=== PATIENT | male | born 1980 | race African-American/Black ===

== ENCOUNTER 2018-08-03 10:11 | Emergency (ER) | payer BC, MEDICARE ==
[~2018-08-03] VITALS: Ht 165.1 cm; Wt 59.0 kg
[~2018-08-03 10:11] MED LIST: AMLO10TA4 PO; AMLO5TAB7 PO; CALC667C6 PO; CARV3.12 PO; CINA30TA2 PO; DOXA2TAB2 PO; FOLI0.8T3 PO; HYDR-2758 PO
[2018-08-03] MEDS ORDERED: ONDANSETRON ODT 4 MG TAB.RAPDIS. PO ONE (10:45)
[2018-08-03] MEDS: ONDANSETRON PF 4 MG/2 ML VIAL. IV ONE (11:04)
--- NOTE | 2018-08-03 11:04 | EKG ---
[facility] [address] [place] [address] Test Date: 2018-08-03 Test Time: 10:36:26 Pat Name: PRIMO DE LA ROSA Department: Room: Gender: M Accounting Manager Controller: : [id number] Requested By: ACE YATES Order Number: [id number] Reading MD: Clay Brunson Measurements Intervals [place] Rate: 89 P: 53 HI: 172 QRS: 46 QRSD: 80 T: 66 QT: 362 QTc: 447 Interpretive Statements SINUS RHYTHM LEFT ATRIAL ABNORMALITY NONSPECIFIC ANTERIOR ST CHANGES ABNORMAL ECG RI6.01 Electronically Signed On 08-07-2018 12:51:56 [employer]IL [employer] by Clay Brunson
[2018-08-03] MEDS: LIDO:MAALOX 1:1 20 ML SINGLE DOSE. SWSW ONE (11:11)
[2018-08-03 11:21] LABS: BASO % 1 % (0-3); EOS # 0.1 x10^3/uL (0.0-0.7); EOS % 2 % (0-3); HEMATOCRIT 45.6 % (39.0-53.0); LYMPH # 0.7 x10^3/uL (1.0-4.8); LYMPH % 12 % (24-48); MEAN CORPUSCULAR HEMOGLOBIN 31 pg (25-35); MEAN CORPUSCULAR HGB CONC 33 g/dL (31-37); MEAN CORPUSCULAR VOLUME 95 fL (79-100); MONO # 0.5 x10^3/uL (0.0-1.1); MONO % 7 % (0-9); NEUT # 4.8 x10^3uL (1.8-7.7); NEUT % 78 % (31-73); PLATELET COUNT 170 x10^3/uL (140-400); RED BLOOD COUNT 4.83 x10^6/uL (4.30-5.70); WHITE BLOOD COUNT 6.2 x10^3/uL (4.0-11.0)
--- NOTE | 2018-08-03 11:34 | PHYS DOC ---
Past Medical History Past Medical History: Hypertension, Renal Failure Past Surgical History: Other Additional Past Surgical Histo: AV Fistula L Arm, kidney transplant 2007 Alcohol Use: None Drug Use: None Adult General Chief Complaint Chief Complaint: GI PROBLEM HPI HPI Patient is a 38 year old male with end-stage renal disease on hemodialysis who is presenting with vomiting. It is been going on for 5-6 hours he woke up with vomiting he also has burning. Very" esophagus" pain. He says that started after he started vomiting. He said he does not drink alcohol he occasionally smokes cigarettes he denies drugs he had dialysis last night without difficulty he has had no fever just the vomiting only. He has no abdominal surgeries in the past. No diarrhea does not make urine no chest pain no coughing no sick contacts symptoms are moderate has not tried anything for relief Patient is no chest pain at all. Review of Systems Review of Systems Constitutional: Denies fever or chills [] Eyes: Denies change in visual acuity, redness, or eye pain [] HENT: Denies nasal congestion or sore throat [] Respiratory: Denies cough or shortness of breath [] Cardiovascular: No additional information not addressed in HPI [] Musculoskeletal: Denies back pain or joint pain [] Integument: Denies rash or skin lesions [] All other systems were reviewed and found to be within normal limits, except as documented in this note. Current Medications Current Medications Current Medications Medications (Trade) Dose Ordered Sig/Cori Start Time Stop Time Status Last Admin Dose Admin Aspirin (Children'S Aspirin) 324 mg 1X ONCE 08/03/18 12:15 08/03/18 12:16 DC 08/03/18 12:56 324 MG Multi-Ingredient Mouthwash/Gargle (Gi Cocktail) 20 ml 1X ONCE 08/03/18 10:45 08/03/18 10:46 DC 08/03/18 11:11 20 ML Ondansetron HCl (Zofran Odt) 4 mg 1X ONCE 08/03/18 10:45 08/03/18 10:46 DC Ondansetron HCl (Zofran) 4 mg 1X ONCE 08/03/18 10:45 08/03/18 10:47 DC 08/03/18 11:04 4 MG Allergies Allergies Allergies Coded Allergies Type Severity Reaction Last Updated Verified povidone-iodine Allergy Mild itching 08/03/18 Yes soap Allergy Mild itching 08/03/18 Yes Physical Exam Physical Exam Constitutional: Well developed, well nourished, no acute distress, non-toxic appearance. [] HENT: Normocephalic, atraumatic, bilateral external ears normal, oropharynx dry , no oral exudates, nose normal. [] Eyes: PERRLA, EOMI, conjunctiva normal, no discharge. [] Neck: Normal range of motion, no tenderness, supple, no stridor. [] Cardiovascular:Heart rate regular rhythm, no murmur [] Lungs & Thorax: faint crackles b/l lung bases Abdomen: Bowel sounds normal, soft, epigastric (no ruq) tenderness, no masses, no pulsatile masses. [] Skin: Warm, dry, no erythema, no rash. [] Back: No tenderness, no CVA tenderness. [] Extremities: No tenderness, no cyanosis, no clubbing, ROM intact, no edema. [] thrill present in left arm Neurologic: Alert and oriented X 3, normal motor function, normal sensory function, no focal deficits noted. [] Psychologic: Affect normal, judgement normal, mood normal. [] Current Patient Data Vital Signs Vital Signs Date Time Temp Pulse Resp B/P (MAP) Pulse Ox O2 Delivery O2 Flow Rate FiO2 08/03/18 14:00 78 16 150/98 (115) 100 Room Air 08/03/18 10:25 98.1 98.1 Lab Values Laboratory Tests Test 08/03/18 11:05 08/03/18 11:35 08/03/18 13:15 White Blood Count 6.2 x10^3/uL (4.0-11.0) Red Blood Count 4.83 x10^6/uL (4.30-5.70) Hemoglobin 15.0 g/dL (13.0-17.5) Hematocrit 45.6 % (39.0-53.0) Mean Corpuscular Volume 95 fL (79-100) Mean Corpuscular Hemoglobin 31 pg (25-35) Mean Corpuscular Hemoglobin Concent 33 g/dL (31-37) Red Cell Distribution Width 16.0 % (11.5-14.5) H Platelet Count 170 x10^3/uL (140-400) Neutrophils (%) (Auto) 78 % (31-73) H Lymphocytes (%) (Auto) 12 % (24-48) L Monocytes (%) (Auto) 7 % (0-9) Eosinophils (%) (Auto) 2 % (0-3) Basophils (%) (Auto) 1 % (0-3) Neutrophils # (Auto) 4.8 x10^3uL (1.8-7.7) Lymphocytes # (Auto) 0.7 x10^3/uL (1.0-4.8) L Monocytes # (Auto) 0.5 x10^3/uL (0.0-1.1) Eosinophils # (Auto) 0.1 x10^3/uL (0.0-0.7) Basophils # (Auto) 0.0 x10^3/uL (0.0-0.2) Sodium Level 141 mmol/L (136-145) Potassium Level 5.1 mmol/L (3.5-5.1) Chloride Level 95 mmol/L (98-107) L Carbon Dioxide Level 30 mmol/L (21-32) Anion Gap 16 (6-14) H Blood Urea Nitrogen 39 mg/dL (8-26) H Creatinine 11.2 mg/dL (0.7-1.3) H Estimated GFR (Cockcroft-Gault) 6.3 BUN/Creatinine Ratio 3 (6-20) L Glucose Level 88 mg/dL (70-99) Calcium Level 9.7 mg/dL (8.5-10.1) Total Bilirubin 0.4 mg/dL (0.2-1.0) Aspartate Amino Transferase (AST) 22 U/L (15-37) Alanine Aminotransferase (ALT) 23 U/L (16-63) Alkaline Phosphatase 76 U/L (46-116) Troponin I Quantitative 0.142 ng/mL (0.000-0.055) 0.155 ng/mL (0.000-0.055) Total Protein 8.3 g/dL (6.4-8.2) H Albumin 4.2 g/dL (3.4-5.0) Albumin/Globulin Ratio 1.0 (1.0-1.7) Lipase 256 U/L (73-393) Laboratory Tests 08/03/18 11:05 Laboratory Tests 08/03/18 11:35 EKG EKG [] Interpretation Time: EKG shows a normal sinus rhythm with a rate of 89 there are prominent T waves however there is no STEMI could be an LVH pattern Radiology/Procedures Radiology/Procedures [] Course & Med Decision Making Course & Med Decision Making Pertinent Labs and Imaging studies reviewed. (See chart for details) []38 show male with history of end-stage renal disease on hemodialysis who is presenting with vomiting with GERD symptoms. Isolated no chest pain no diarrhea mild epigastric tenderness. Patient was treated in the emergency room with a GI cocktail with resolution of his symptoms he said he felt much better. I noted his initial troponin was just borderline elevated at basically statistically similar to his previous baseline troponins we even did a second one. Remained statistically about the same. I did offer him admission overnight so that we could cycle is troponins over the course of 1224 hrs. to be sure there are not rising overall I have low suspicion for acute coronary syndrome although I did tell him we could not officially ruled out. He is aware that if he goes he could have a missed heart attack potentially although again I think it is pretty low risk at told him unfortunately the risk is not 0. I offered admission he said he had to go he did sign out AGAINST MEDICAL ADVICE he was of sound mind and can understand the risks and benefits that we discussed. Dragon Disclaimer Dragon Disclaimer This electronic medical record was generated, in whole or in part, using a voice recognition dictation system. Departure Departure Impression: Primary Impression: Vomiting Disposition: 07 AGAINST MEDICAL ADVICE Condition: STABLE Referrals: UNKNOWN PCP NAME (PCP) ACE YATES MD Aug 03, 2018 11:34
[2018-08-03 11:56] LABS: CALCIUM 9.7 mg/dL (8.5-10.1); CREATININE 11.2 mg/dL (0.7-1.3); GFR 6.3; POTASSIUM 5.1 mmol/L (3.5-5.1)
[2018-08-03 12:10] LABS: ALBUMIN 4.2 g/dL (3.4-5.0); TOTAL BILIRUBIN 0.4 mg/dL (0.2-1.0); TOTAL PROTEIN 8.3 g/dL (6.4-8.2)
[2018-08-03] MEDS: ASPIRIN CHEWABLE 81 MG TABLET. PO ONE (12:56)
[2018-08-03 14:00] VITALS: BP 150/98
== END 2018-08-03 14:20 | disposition home or self-care (01) ==
LOC: ER 10:11
DX: R11.10 Vomiting, unspecified (principal); I12.0 Hypertensive chronic kidney disease with stage 5 chronic kidney disease or end stage renal disease; N18.6 End stage renal disease; Z99.2 Dependence on renal dialysis; Z91.041 Radiographic dye allergy status; Z91.048 Other nonmedicinal substance allergy status
CPT/HCPCS: 36415; 80053; 83690; 84484; 85025; 93005; 96374; 99285; J2405